=== PATIENT | female | born 1995 ===

== ENCOUNTER → 2017-01-02 | Outpatient (REF) | payer OTHER | LOC: M LAB REF 17:05 | PROVIDERS: ATTEND Physician Assistant | DX: N76.0 Acute vaginitis (principal) ==

== ENCOUNTER → 2018-02-13 | Outpatient (REF) | payer OTHER | LOC: M LAB REF 09:47 | DX: N76.0 Acute vaginitis (principal) ==

== ENCOUNTER → 2018-12-17 | Outpatient (REF) | payer OTHER | LOC: M LAB REF 13:07 | PROVIDERS: ATTEND Nurse Practitioner Family | DX: N39.0 Urinary tract infection, site not specified (principal) ==